=== PATIENT | male | born 1940 | race Caucasian/White ===

== ENCOUNTER 2016-06-08 18:57 | Emergency (ER) | payer MEDICARE ==
--- NOTE | 2016-07-16 08:25 | ER ---
ADMIT: 06/08/2016 RM/LOC: ER [facility] MR#: [id number] [place], [place] [id number] [place] [address] Emergency Room Report SEX: M AGE: 76 : 1940 DATE: 06/08/2016 ADDENDUM: This patient checked into the ER with chest pain that he had 40 minutes ago. However, when I spoke with the patient, he says it is really not in his chest, it is more in his stomach. By the time he got to the ER, all of his pain was gone, however, he still does have pressure in his belly. He feels like it was really bad heartburn. His CBC and BMP were normal. Chest x-ray was negative. Troponin was not elevated. He was pain free throughout his whole stay in the ER. DIAGNOSIS: Epigastric pain, resolved. We will have him follow up with his primary as needed. Please see my T-sheet. LAXMI Sifuentes / Kevin Dietrich MD / tol JOB #: [id number] CC: Kevin Dietrich MD, Attending Physician Arnie Aguiar MD, Family Physician
== END 2016-06-08 21:30 | disposition home or self-care (01) ==
LOC: ER 18:57
DX: R10.13 Epigastric pain (principal); E78.00 Pure hypercholesterolemia, unspecified; D64.9 Anemia, unspecified; Z90.49 Acquired absence of other specified parts of digestive tract; Z88.1 Allergy status to other antibiotic agents